=== PATIENT | male | born 1960 | race Two or more races ===

== ENCOUNTER 2018-04-01 04:51 | Inpatient (IN) ==
--- NOTE | 2018-03-28 10:28 | PAT Medication Instructions ---
Medication Instructions Date of Service March 28, 2018 Home Medications diphenhydramine HCl [Allergy] 25 mg PO HS NEEDED Take morning of surgery NOTHING TO EAT OR DRINK AFTER MIDNIGHT Take evening before surgery diphenhydramine HCl [Allergy] 25 mg PO HS NEEDED Other Notes If you have any questions please call us at [phone] or [phone] or [phone] or [phone]
--- NOTE | 2018-03-28 11:39 | Anesthesiology Consultation ---
Date of Service March 28, 2018 Assessment & Plan (1) Encounter for pre-operative examination: Chart Review Chart Review: Patient seen in Pre Admission Testing Consults Requested none Teaching & Discussion Pre-Anesthesia Teaching/Discussion Notes: Instructed NPO after midnight before surgery, except medications with 15 cc of water. Medication instructions provided according to the PAT guidelines. History Surgery Operation Date: 04/01/18 13:10 Proposed Procedures p Right Anterior Total Hip Replacement - Jhon Keyes DO Height/Weight Height: 6 ft 3 in Weight: 154.7 kg Allergies Allergy/AdvReac Type Severity Reaction Status Date / Time No Known Allergies Allergy Verified 03/25/18 13:02 Medications Home Medications Medication Instructions Recorded Confirmed Last Taken diphenhydramine HCl [Allergy] 25 mg PO HS PRN 03/25/18 03/25/18 Unknown Past Medical History Medical History Osteoarthritis Past Surgical History Surgical History History of bladder surgery repair congenital defect History of surgery REPAIR OF ANAL FISSURE X 2 Past Anesthesia History No Hx of Anesthesia Complications and No Family Hx of Anesthesia Complications History of PONV No Motion Sickness Screening History of Motion Sickness: No Social History Smoking Status: Former smoker Do You Dip or Chew Tobacco: Yes (Chews 1 can per day. ADVISED) Smoking End Date: . Smoked x 5 years. Smoked 1 pack per week. Hx Alcohol Use: Yes Alcohol type: beer, wine and hard liquor alcohol intake frequency: other Alcohol Intake Frequency Comment: ONCE PER MONTH Hx Substance Use: No substance use type: does not use Exercise / Class Metabolic Activity II 4-5 Yardwork/Stairs/Walk up hill (Able to climb [employer]. 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 Denies CP or SOB. ) Review of Systems Patient denies chest pain, shortness of breath, dyspnea on exertion, reflux, cough, wheezing, palpitations. +joint pain (hip) Physical Exam Vital Signs BP: 146/92 P: 83 R: 18 T: 98.3 SPO2: 94% on RA Constitutional + morbidly obese ENMT Thyromental Distance: > or= 3.5 Finger Breadths (3.5) Mallampati Class: II Neck normal visual inspection, trachea midline and + facial hair (advised); neck extension not limited Respiratory normal respiratory effort Auscultation: lungs clear to auscultation bilaterally Cardiovascular Rate/Rhythm: regular rate and regular rhythm Heart Sounds: no murmur Vessels: no carotid bruit Neurologic moves all extremities Psychiatric Orientation: alert and oriented x 3 Testing Electrocardiogram Date: 03/28/18 Findings: + NSR @ (72) Chest X-Ray Date: 03/28/18 Findings: + NAD Laboratory Results 03/28/18 12:06 03/28/18 12:06 Blood Type A Positive 03/28/18 12:06 Antibody Screen NEGATIVE 03/28/18 12:06 PT 10.5 Seconds (9.0-12.0) 03/28/18 12:06 INR 1.0 (0.9-1.1) 03/28/18 12:06 APTT 30.1 Seconds (21.0-31.0) 03/28/18 12:06
--- NOTE | 2018-03-28 12:33 | XRay Report ---
XR chest Pre-admission PA/Lat HISTORY: Preop. COMPARISON: None. FINDINGS: The lungs are clear. Cardiac silhouette is normal in size. No pleural effusions. No pneumot horax. IMPRESSION: No acute process. Electronically signed by: Jeremiah Parsons M.D. 03/28/2018 12:31 PM
[2018-03-28 13:23] LABS: Basophils # (auto) 0.03 K/uL (0-0.2); Basophils % (auto) 0.3 %; Eosinophils # (auto) 0.16 K/uL (0-0.5); Eosinophils % (auto) 1.5 %; Hematocrit (blood only) 46.7 % (42-52); Hemoglobin 15.7 g/dL (14.0-18.0); Immature Granulocytes # (auto) 0.03 K/uL (0.00-0.02); Immature Granulocytes % (auto) 0.3 %; Lymphocytes # (auto) 2.16 K/uL (1.2-3.4); Lymphocytes % (auto) 20.3 %; Mean Corpuscular Hgb Conc 33.6 g/dL (32-36); Mean Corpuscular Volume 83.7 fL (80-100); Mean Platelet Volume 11.5 fL (7.4-10.4); Monocytes # (auto) 0.62 K/uL (0.11-0.59); Monocytes % (auto) 5.8 %; Neutrophils # (auto) 7.66 K/uL (1.4-6.5); Neutrophils % (auto) 71.8 %; Platelet Count 263 K/uL (130-400); RDW Coefficient of Variation 14.5 % (11.5-14.5); RDW Standard Deviation 44.1 fL (36.4-46.3); Red Blood Count 5.58 M/uL (4.7-6.1); White Blood Count 10.66 K/uL (4.8-10.8)
[2018-03-28 13:45] LABS: Partial Thromboplastin Ratio 1.2; Partial Thromboplastin Time 30.1 Seconds (21.0-31.0); Prothrombin Time 10.5 Seconds (9.0-12.0)
[2018-03-28 13:54] LABS: BUN Creatinine Ratio 10.7 (10-20); Calcium 8.8 mg/dl (8.5-10.1); Est GFR (African American) 95.9; Est GFR (Non-African American) 82.8
--- NOTE | 2018-03-30 07:41 | History & Physical Report ---
Date of Service March 30, 2018 Assessment & Plan (1) Osteoarthritis of right hip: We will proceed with a right anterior total hip arthroplasty. Postoperatively he will be placed on aspirin for DVT prophylaxis. He will be kept overnight in the hospital for postop medical management. He plans to use energy physical therapy upon discharge. Present on Admission?: Yes History of Present Illness Chief Complaint: Primary osteoarthritis of the right hip Primary Care Provider: Darnell aMc is a pleasant 57-year-old male who is been dealing with a several year history of on and off right hip pain. He seen a chiropractor as well as a primary care physician. X-rays and clinical examination have been diagnostic for primary also arthritis of his right hip. Unfortunately his hip pain is gotten much worse recently. There is some days where he can barely move and his has to dress him. He owns a paving company. After failing extensive conservative treatment he is elected proceed with a right total hip arthroplasty. Allergies Allergy/AdvReac Type Severity Reaction Status Date / Time No Known Allergies Allergy Verified 03/25/18 13:02 Home Medications Home Medications Medication Instructions Recorded Confirmed Type diphenhydramine HCl [Allergy] 25 mg PO HS PRN 03/25/18 03/25/18 History Past Med/Surg History Medical History Osteoarthritis Surgical History History of bladder surgery repair congenital defect History of surgery REPAIR OF ANAL FISSURE X 2 Social History Current Living Situation: Spouse Other Information That Helps Us Care for You: No Feels Safe at Home: Yes Safety Concerns: Feels Safe At This Time Smoking Status: Former smoker Do You Dip or Chew Tobacco: Yes (Chews 1 can per day. ADVISED) Smoking End Date: . Smoked x 5 years. Smoked 1 pack per week. Hx Alcohol Use: Yes Alcohol type: beer, wine and hard liquor Alcohol Intake Frequency: other Hx Substance Use: No Beliefs That Will Affect Care: None Preferred Language: Citizen Of [place] Communication Ability: Effective Rn Delivery Required: No Review of Systems All systems reviewed & are unremarkable except as noted in HPI & below Physical Exam 2 Constitutional: WD/WN, vitals as above Eyes: PERRL, conjunctivae normal, anicteric sclerae ENMT: external ear and nose normal, oropharynx normal Neck: trachea midline, no thyromegaly Respiratory: normal respiratory effort Cardiovascular: RRR, no murmur, no edema Gastrointestinal (Abdomen): normal bowel sounds, soft, nontender, no hepatosplenomegaly Musculoskeletal: Physical examination of the right hip reveals decreased range of motion with flexion, internal and external rotation. There is significant groin pain with forced internal rotation of the hip his leg lengths are essentially equal. Psychiatric: A+Ox3, euthymic affect Results & Data Diagnostic Findings Radiographs of the right hip and pelvis demonstrate advanced osteoarthritis with joint space narrowing osteophyte formation and [id number] articulation.
[2018-04-01] MEDS ORDERED: LR 500ML BOLUS, THEN 15ML/HR IV SCH (06:00)
[2018-04-01] MEDS ORDERED: LR 60ML/HR IV SCH (06:00)
[2018-04-01] MEDS ORDERED: CEFAZOLIN 3000MG 65 ML IV SCH (06:00)
[2018-04-01] MEDS ORDERED: FAMOTIDINE 20 MG TAB PO SCH (06:00)
[2018-04-01] MEDS ORDERED: GABAPENTIN 300 MG x 2 PO SCH (06:00)
[2018-04-01] MEDS ORDERED: ACETAMINOPHEN 500 MG TAB PO SCH (06:00)
[2018-04-01] MEDS ORDERED: ROPIVACAINE 0.5% HCL/PF 150 MG, BUPIVACAINE 0.5% MPF 30 ML, EPINEPHrine 30MG/30ML (OR U... INFIL SCH (06:00)
[2018-04-01] MEDS ORDERED: TRANEXAMIC ACID 1,000 MG **IV Pre-op IV SCH (06:00)
[2018-04-01] MEDS ORDERED: fentaNYL citrate 100 MCG/2 ML VIAL ONE (06:29)
[2018-04-01] MEDS ORDERED: MIDAZOLAM HCL 1 MG/ML 2ML VIAL ONE ×4 (06:29→08:18)
[2018-04-01] MEDS ORDERED: TRANEXAMIC ACID 1,000 MG **IV Intra-op IV SCH (06:30)
[2018-04-01] MEDS ORDERED: BUPIVACAINE 0.5 % 5 MG/1 ML PF 10ML VIAL ONE (06:32)
[2018-04-01] MEDS ORDERED: POVIDONE-IODINE OP SOLN 30 ML BTL ONE (06:36)
[2018-04-01] MEDS ORDERED: ORTHO JOINT ANESTHETIC ONE (06:36)
--- NOTE | 2018-04-01 06:42 | History & Physical Bridge Note ---
Date of Service April 01, 2018 History & Physical Bridge Note I have examined the patient, reviewed the History & Physical and in the interval since the performance of the History & Physical I have noted the following changes of clinical significance: no changes noted
[2018-04-01] MEDS ORDERED: ATROPINE SULFATE 0.1 MG/ML 10ML SYR IV PRN (06:50)
[2018-04-01] MEDS ORDERED: ONDANSETRON INJ 2 MG/ML 2 ML VIAL IV PRN ×2 (06:50→09:36)
[2018-04-01] MEDS ORDERED: HYDROmorphone INJ 1 MG/ML SYRINGE IV PRN (06:50)
[2018-04-01] MEDS ORDERED: ePHEDrine sulfate 50 MG/ML AMP IV PRN (06:50)
[2018-04-01] MEDS ORDERED: KETOROLAC 30 MG/ML VIAL IV PRN (06:50)
[2018-04-01] MEDS ORDERED: PHENYLEPHRINE 100MCG/ML 5ML SYR IV PRN (06:50)
[2018-04-01] MEDS ORDERED: PROPOFOL IV EMULSION 10 MG/ML 20 ML VIAL IV ONE (07:22)
[2018-04-01] MEDS ORDERED: KETAMINE HCL INJ 50 MG/ML 10 ML VIAL ONE (07:36)
--- NOTE | 2018-04-01 09:23 | Operative Report ---
Post Operative Report Pre & Post Diagnosis Operation Date: 04/01/18 07:00 Pre-Op Diagnosis: RIGHT HIP DEGENERATIVE JOINT DISEASE Post-Op Diagnosis: RIGHT HIP DEGENERATIVE JOINT DISEASE Procedure Operation Date: 04/01/18 07:00 Actual Procedures p Right Anterior Total Hip Replacement(Right) - Jhon Keyes DO Surgeon Jhon Keyes DO Supervisor Park[employer] Lot Jhon Pal PAC Estimated Blood Loss 250 Findings Consistent with Post-Op Diagnosis Specimens Right femoral head Complications none Disposition Disposition: Recovery Room Indications Bubba is a pleasant 57-year-old male who presented my office with chronic increasing right hip pain. His hip pain has actually become quite debilitating. X-rays and clinical examination have been diagnostic for primary osteoarthritis of the right hip. After failing conservative treatment. He elected to proceed with a right anterior total hip arthroplasty. Description of Procedure Implants used Biomet Taperloc total hip arthroplasty system with a size 20 Taperloc stem, a 56 mm G7 cup with a 25mm screw, an E1 polyethylene liner, a 40 mm ceramic head with a +6 neck. Patient arrived at the hospital for the above procedure. They were seen in the preoperative holding area and the operative extremity was identified and signed. They were given a spinal anesthetic. They were given a preoperative antibiotic and TXA. They were taken back To the operating room and laid on the table in the supine position. The leg was brought out through a Puristst leg positioner. The hip was then prepped and draped in sterile fashion. A timeout was done and the patient in upper extremities properly identified. An anterior approach was used. Dissection was taken down through the fascia and the tensor muscle belly was retracted laterally and the rectus was retracted medially. The circumflex vessels were identified and ligated. The capsule was then incised and tagged for later repair. The femoral neck was then cut and the femoral head was removed. The acetabulum was exposed. Time was spent doing a complete circumferential labral release. Sequential reaming of the acetabulum up to a size 55 reamer was done. Final reamings were done under fluoroscopy to ensure appropriate version. A Biomet 56 mm G7 cup was then impacted into place. A single 25 mm screw was placed. The E1 polyethylene liner was then snapped into place. Surrounding soft tissues were then injected with 100 cc of an orthopedic pain control cocktail. The proximal femur was then exposed. Sequential broaching up to a size 20 broach was done. Off that broach a size 40 head with a +6 neck was trialed. The hip was reduced and fluoroscopic images showed anatomic alignment of the implants in acceptable length. The broach was removed. The final size 20 standard offset Taperloc stem was then impacted into place. A ceramic 40 mm head with a +6 neck was then impacted into place in the hip was reduced. Final fluoroscopic images showed anatomic reduction of the hip. The capsule was then closed with #1 Vicryl suture. A dilute betadyne lavage was then done for 3 minutes. The joint was then irrigated with normal saline solution. The fascia was closed with #1 PDS suture. Skin was closed with 2-0 Vicryl, shelley, and a Benita VAC dressing. The patient was then transferred to a hospital bed and taken to the post anesthesia care unit in stable condition. They tolerated the procedure well. I attest to the content of the Intraoperative Record and any orders documented therein. Any exceptions are noted below.
[2018-04-01] MEDS ORDERED: BISACODYL 10 MG SUPP PR PRN (09:36)
[2018-04-01] MEDS ORDERED: METOCLOPRAMIDE HCL INJ 5 MG/ML 2 ML VIAL IV PRN (09:36)
[2018-04-01] MEDS ORDERED: HYDROmorphone INJ 0.5 MG/0.5 ML SYR IV PRN (09:36)
[2018-04-01] MEDS ORDERED: NALOXONE HCL 0.4 MG/1 ML VIAL/CARP IV PRN (09:36)
[2018-04-01] MEDS ORDERED: MAGNESIUM HYDROXIDE SUSP 30 ML UDC PO PRN (09:36)
--- NOTE | 2018-04-01 10:03 | XRay Report ---
AP PELVIS, CROSSTABLE LATERAL RIGHT HIP History: Right total hip arthroplasty. Degenerative arthritis. Postop. FINDINGS: The patient is status post a right total hip arthroplasty. The hardware is intact. No fract ure or dislocation. Skin shelley are in place. IMPRESSION: Right total hip arthroplasty. No evidence for hardware complication Electronically signed by: Jeremiah Parsons M.D. 04/01/2018 10:02 AM
--- NOTE | 2018-04-01 10:09 | Anesthesiology Progress Note ---
Date of Service April 01, 2018 Anesthesia Post Procedure Vital Signs Vital Signs: Temp Pulse Pulse Resp BP BP Pulse Ox 04/01/18 10:00 58 L 14 142/71 H 97 04/01/18 09:50 60 15 125/70 96 04/01/18 09:41 36.1 C L 70 12 118/71 96 04/01/18 05:48 36.8 C 77 20 149/94 H 96 Pain Intensity Right Hip: Pain Intensity: 3 Notes Mental Status: alert / awake / arousable Patient Amnestic to Procedure: Yes Nausea / Vomiting: adequately controlled Pain: adequately controlled Airway Patency, RR, SpO2: stable & adequate BP & HR: stable & adequate Hydration State: stable & adequate Neuraxial Anesthesia: was administered and sensory block is resolving Anesthetic Complications: no major complications apparent
[2018-04-01] MEDS: SODIUM CHLORIDE 0.9% 1000ML 1,000 ML IV SCH ×2 (10:41→18:55)
[2018-04-01] MEDS: KETOROLAC 30 MG/ML VIAL IV SCH ×2 (11:42→18:54)
--- NOTE | 2018-04-01 12:53 | Fluoroscopy Report ---
FL hip RT 1V CLINICAL HISTORY: RIGHT ANTERIOR MELI COMPARISON STUDY: None. FLUOROSCOPY TIME: 1 minute and 17 seconds. FINDINGS: 3 fluoroscopic spot images of the right hip demonstrated right total hip arthroplasty. The hardware is intact. No fracture or dislocation. IMPRESSION: Fluoroscopy provided for a right total hip arthroplasty. Electronically signed by: Jeremiah Parsons M.D. 04/01/2018 12:51 PM
[2018-04-01] MEDS: ACETAMINOPHEN 500 MG TAB PO SCH ×2 (13:30→22:09)
[2018-04-01] MEDS: CEFAZOLIN 2000MG 2,000 MG/15 ML SYR IV SCH (15:45)
[2018-04-01] MEDS: SENNA 8.6 MG TAB PO SCH (20:03)
[2018-04-01] MEDS: ASPIRIN 81 MG ECTAB PO SCH (20:03)
[2018-04-01] MEDS: DOCUSATE SODIUM 100 MG CAP PO SCH (20:05)
[2018-04-02] MEDS: KETOROLAC 30 MG/ML VIAL IV SCH ×5 (00:51→23:56)
[2018-04-02] MEDS: CEFAZOLIN 2000MG 2,000 MG/15 ML SYR IV SCH (00:52)
[2018-04-02] MEDS: ACETAMINOPHEN 500 MG TAB PO SCH ×3 (05:48→21:22)
[2018-04-02 05:58] LABS: Basophils # (auto) 0.02 K/uL (0-0.2); Basophils % (auto) 0.1 %; Eosinophils # (auto) 0.15 K/uL (0-0.5); Hematocrit (blood only) 36.7 % (42-52); Immature Granulocytes # (auto) 0.06 K/uL (0.00-0.02); Immature Granulocytes % (auto) 0.4 %; Lymphocytes # (auto) 2.18 K/uL (1.2-3.4); Mean Corpuscular Hgb Conc 32.7 g/dL (32-36); Mean Corpuscular Volume 83.8 fL (80-100); Mean Platelet Volume 11.3 fL (7.4-10.4); Monocytes # (auto) 1.31 K/uL (0.11-0.59); Neutrophils # (auto) 10.79 K/uL (1.4-6.5); Neutrophils % (auto) 74.5 %; Platelet Count 205 K/uL (130-400); RDW Coefficient of Variation 14.5 % (11.5-14.5); RDW Standard Deviation 44.8 fL (36.4-46.3); Red Blood Count 4.38 M/uL (4.7-6.1); White Blood Count 14.51 K/uL (4.8-10.8)
[2018-04-02 06:32] LABS: BUN Creatinine Ratio 14.3 (10-20); Calcium 7.6 mg/dl (8.5-10.1); Creatinine Clr Calc Pharmacy 119.9 ml/min; Est GFR (African American) 88.5; Est GFR (Non-African American) 76.3; Potassium 3.7 mmol/L (3.5-5.1)
[2018-04-02] MEDS: ASPIRIN 81 MG ECTAB PO SCH ×2 (07:18→21:22)
[2018-04-02] MEDS: OXYCODONE HCL IR 5 MG TAB (IMMEDIATE RELEASE) PO PRN ×2 (07:18→18:12)
[2018-04-02] MEDS: MULTIVITAMIN TAB PO SCH (07:18)
[2018-04-02] MEDS: DOCUSATE SODIUM 100 MG CAP PO SCH ×2 (07:19→21:21)
--- NOTE | 2018-04-02 08:37 | Orthopedic Progress Note ---
Date of Service April 02, 2018 Assessment & Plan (1) Osteoarthritis of right hip: Overall he is doing very well. Is not having too much pain in the right hip. He will be up and ambulating today more with physical therapy. He is a little unsure if he will be ready to go home today. We will see how he does this afternoon. If he is doing well and his pain is controlled he can be discharged home this afternoon otherwise he can go home tomorrow morning. Present on Admission?: Yes Subjective Bubba was seen and examined at bedside this morning. Overall is doing fairly well. He was up and ambulating around the nurses station last night. He has some soreness in the hip. He has no other complaints. Physical Exam 2 Vital Signs (Past 24 Hours): Last Vital Signs Temp 36.5 C 04/02/18 07:39 Pulse 63 04/02/18 07:39 Resp 20 04/02/18 07:39 BP 144/76 H 04/02/18 07:39 Pulse Ox 97 04/02/18 07:39 Musculoskeletal: On physical examination of the right hip, the Benita VAC dressing is to suction. His leg lengths are equal. He has active dorsiflexion and plantarflexion of the right ankle. Sensation is intact throughout. Results & Data Laboratory Results H & H 03/28/18 04/02/18 Range/Units 12:06 05:28 Hgb 15.7 12.0 L (14.0-18.0) g/dL Hct 46.7 36.7 L (42-52) % Coagulation 03/28/18 Range/Units 12:06 INR 1.0 (0.9-1.1) Diagnostic Findings Postoperative x-rays of the right hip show the prosthesis to be in anatomic alignment without any evidence of fracture, dislocation, or loosening.
[2018-04-02] MEDS: SODIUM CHLORIDE 0.9% 1000ML 1,000 ML IV SCH (14:44)
[2018-04-02] MEDS: SENNA 8.6 MG TAB PO SCH (21:22)
[2018-04-03] MEDS: KETOROLAC 30 MG/ML VIAL IV SCH (06:06)
[2018-04-03] MEDS: ACETAMINOPHEN 500 MG TAB PO SCH (06:07)
[2018-04-03] MEDS: OXYCODONE HCL IR 5 MG TAB (IMMEDIATE RELEASE) PO PRN (07:09)
[2018-04-03] MEDS: MULTIVITAMIN TAB PO SCH (07:09)
[2018-04-03] MEDS: DOCUSATE SODIUM 100 MG CAP PO SCH (07:09)
[2018-04-03] MEDS: ASPIRIN 81 MG ECTAB PO SCH (07:09)
--- NOTE | 2018-04-03 07:13 | Orthopedic Progress Note ---
Date of Service April 03, 2018 Assessment & Plan (1) Osteoarthritis of right hip: Overall he is doing very well. He is ambulating well with physical therapy. I wrote him a prescription for a bariatric tall walker. He is on oxycodone for pain control and aspirin for DVT prophylaxis. He can be discharged home today. He will follow-up with orthopedics in 2 weeks. Present on Admission?: Yes Subjective Bubba was seen and examined at bedside this morning. Overall is doing very well. He was able to participate well with physical therapy. His pain is controlled and he has no complaints. Physical Exam 2 Vital Signs (Past 24 Hours): Last Vital Signs Temp 37.0 C 04/02/18 23:03 Pulse 72 04/02/18 23:03 Resp 18 04/02/18 23:03 BP 144/83 H 04/02/18 23:03 Pulse Ox 96 04/02/18 23:03 Musculoskeletal: On physical examination of the right hip, the Benita VAC dressing is to suction. His leg lengths are equal. He is active dorsiflexion and plantarflexion of his right ankle. Sensation is intact.
--- NOTE | 2018-04-03 07:14 | Discharge Summary ---
Date of Service April 03, 2018 Admission HPI Per Admitting Provider Bubba is a pleasant 57-year-old male who is been dealing with a several year history of on and off right hip pain. He seen a chiropractor as well as a primary care physician. X-rays and clinical examination have been diagnostic for primary also arthritis of his right hip. Unfortunately his hip pain is gotten much worse recently. There is some days where he can barely move and his has to dress him. He owns a paving company. After failing extensive conservative treatment he is elected proceed with a right total hip arthroplasty. Specialty Data Orthopedic H & H 03/28/18 04/02/18 Range/Units 12:06 05:28 Hgb 15.7 12.0 L (14.0-18.0) g/dL Hct 46.7 36.7 L (42-52) % Coagulation 03/28/18 Range/Units 12:06 INR 1.0 (0.9-1.1) Discharge Data Consultations 04/02/18 08:00 Consult Case Management - Discharge Planning Routine Procedures Performed Operation Date: 04/01/18 07:00 Actual Procedures p Right Anterior Total Hip Replacement(Right) - Jhon Keyes DO Hospital Course (1) Osteoarthritis of right hip: On April 01, 2018 Bubba arrived at [facility] and underwent a right anterior total hip arthroplasty without complication. He had a spinal anesthetic. Postoperatively he was started on aspirin for DVT prophylaxis and discharged to general orthopedic floors. His hospital course was uneventful. On postop day #1 his H&H was stable and his pain was well controlled. He was able to ambulate well with physical therapy. On postop day #2 he continued to do well. His pain was well controlled. He was discharged home with physical therapy. He will follow-up with orthopedics in 2 weeks. Discharge Instructions Home Medications Medication Instructions Recorded Confirmed diphenhydramine HCl [Allergy] 25 mg PO HS PRN 03/25/18 04/01/18 Previous Rx's Medication Instructions Recorded aspirin [Ecotrin Low Strength] 81 mg PO BID #84 tab 04/02/18 oxycodone 5 - 10 mg PO Q4H PRN #40 tab 04/02/18
== END 2018-04-03 10:30 | disposition home health service (06) | DRG 470 ==
LOC: ASU 04:51 → 3E 09:25

== ENCOUNTER 2018-05-23 09:27 | Observation (INO) ==
[2018-05-23] MEDS ORDERED: ONDANSETRON INJ 2 MG/ML 2 ML VIAL IV STA (09:46)
[2018-05-23] MEDS ORDERED: SODIUM CHLORIDE 0.9% 1000ML 1,000 ML IV ONE (09:46)
[2018-05-23] MEDS ORDERED: fentaNYL citrate 100 MCG/2 ML VIAL IV STA (09:46)
[2018-05-23 10:14] LABS: Basophils # (auto) 0.03 K/uL (0-0.2); Basophils % (auto) 0.4 %; Eosinophils # (auto) 0.12 K/uL (0-0.5); Eosinophils % (auto) 1.4 %; Hematocrit (blood only) 41.5 % (42-52); Hemoglobin 13.7 g/dL (14.0-18.0); Immature Granulocytes # (auto) 0.01 K/uL (0.00-0.02); Immature Granulocytes % (auto) 0.1 %; Lymphocytes # (auto) 1.42 K/uL (1.2-3.4); Lymphocytes % (auto) 16.8 %; Mean Corpuscular Volume 83.3 fL (80-100); Mean Platelet Volume 11.5 fL (7.4-10.4); Monocytes # (auto) 0.56 K/uL (0.11-0.59); Monocytes % (auto) 6.6 %; Neutrophils # (auto) 6.32 K/uL (1.4-6.5); Neutrophils % (auto) 74.7 %; Platelet Count 275 K/uL (130-400); RDW Coefficient of Variation 15.1 % (11.5-14.5); RDW Standard Deviation 46.1 fL (36.4-46.3); Red Blood Count 4.98 M/uL (4.7-6.1); White Blood Count 8.46 K/uL (4.8-10.8)
[2018-05-23 10:34] LABS: Est GFR (African American) 112.4; Potassium 3.9 mmol/L (3.5-5.1)
[2018-05-23 10:35] LABS: Albumin Level 3.4 gm/dl (3.4-5.0); BUN Creatinine Ratio 15.5 (10-20); Bilirubin,Total 0.4 mg/dl (0.2-1); Calcium 8.5 mg/dl (8.5-10.1); Creatinine Clr Calc Pharmacy 150.1 ml/min; Est GFR (Non-African American) 96.9; Total Protein 7.1 gm/dl (6.4-8.2)
--- NOTE | 2018-05-23 11:45 | Ultrasound Report ---
ABDOMINAL ULTRASOUND, RIGHT UPPER QUADRANT HISTORY: RUQ Pain radiating to flank. COMPARISON: None. FINDINGS: Pancreas: Obscured by overlying bowel gas. Liver: The liver is echogenic consistent with fatty change. Gallbladder: Multiple stones identified. Suspect trace pericholecystic fluid. Borderline gallbladder wall thickening. Dominant stone measures 2.6 cm. CBD: 6 mm. Right kidney: No hydronephrosis. IMPRESSION: Cholelithiasis with borderline gallbladder wall thickening and possible trace pericholecystic fluid. There is also a positive sonographic Dwason's sign. Therefore, this is suspicious for acute cholecyst itis. Electronically signed by: Jeremiah Parsons M.D. 05/23/2018 11:44 AM
[2018-05-23] MEDS ORDERED: HYDROmorphone INJ 1 MG/ML SYRINGE IV STA (12:02)
--- NOTE | 2018-05-23 12:47 | History & Physical Report ---
Date of Service May 23, 2018 Assessment & Plan (1) Acute cholecystitis: Large gallstone with early inflammatory changes on U/S, will plan for laparoscopic cholecystectomy this afternoon. Had EKG and CXR in Mar 2018 prior to MELI. as above. hx c/w acute cholecystitis. discussed options/risks ( bleeding /infection/dvt/pe/mi/cva/bile leaks etc...) questions answered will proceed with lap mahnaz this afternoon. History of Present Illness Primary Care Provider: Darnell Montez 57 y/o male with RUQ pain, N/V that began last evening several hours after eating meatloaf. No previous biliary symptoms although multiple family members have had cholecystectomy. Pain started as an 8 and continues at an 8 after being medicated. Allergies Allergy/AdvReac Type Severity Reaction Status Date / Time No Known Allergies Allergy Verified 04/01/18 05:41 Home Medications Home Medications Medication Instructions Recorded Confirmed Type diphenhydramine HCl [Allergy] 25 mg PO HS PRN 03/25/18 05/23/18 History aspirin [Ecotrin Low Strength] 81 mg PO HS 05/23/18 05/23/18 History Past Med/Surg History Medical History Osteoarthritis Surgical History History of bladder surgery repair congenital defect History of surgery REPAIR OF ANAL FISSURE X 2 Social History Preferred Language: [place] Beliefs That Will Affect Care: None Current Living Situation: Spouse Feels Safe at Home: Yes Smoking Status: Never smoker Hx Alcohol Use: Yes Hx Substance Use: No Review of Systems Constitutional: + weight loss; no fever and no chills Cardiovascular: no chest pain and no chest pain with activity Gastrointestinal: + abdominal pain, + nausea and + vomiting; no bloating Physical Exam Vital Signs (Past 24 Hours): Last Vital Signs Temp 36.4 C L 05/23/18 09:32 Pulse 75 05/23/18 11:31 Resp 18 05/23/18 11:31 BP 165/90 H 05/23/18 11:31 Pulse Ox 99 05/23/18 11:31 Constitutional: WD/WN, vitals as above Respiratory: normal respiratory effort, lungs clear to auscultation Cardiovascular: RRR, no murmur, no edema Gastrointestinal (Abdomen): Percussion/Palpation: + abdomen tender (RUQ), + guarding and abdomen soft Skin: no rashes, warm and dry Results & Data Diagnostic Findings ABDOMINAL ULTRASOUND, RIGHT UPPER QUADRANT HISTORY: RUQ Pain radiating to flank. COMPARISON: None. FINDINGS: Pancreas: Obscured by overlying bowel gas. Liver: The liver is echogenic consistent with fatty change. Gallbladder: Multiple stones identified. Suspect trace pericholecystic fluid. Borderline gallbladder wall thickening. Dominant stone measures 2.6 cm. CBD: 6 mm. Right kidney: No hydronephrosis. IMPRESSION: Cholelithiasis with borderline gallbladder wall thickening and possible trace pericholecystic fluid. There is also a positive sonographic Dawson's sign. Therefore, this is suspicious for acute cholecystitis.
--- NOTE | 2018-05-23 13:23 | XRay Report ---
XR chest 1V portable CLINICAL HISTORY: pre-op preoperative evaluation COMPARISON STUDY: 03/28/2018 FINDINGS: The bones soft tissues and hemidiaphragms are normal. The cardiomediastinal silhouette is n ormal. The lungs are clear. The pulmonary vasculature is normal. IMPRESSION: Negative chest. The above report was generated using voice recognition software. It may contain grammatical, syntax or spelling errors. Electronically signed by: Edward Rosas M.D. 05/23/2018 1:22 PM
[2018-05-23] MEDS ORDERED: LIDOCAINE HCL 2% 2 ML VIAL/AMP(20MG/ML) INFIL ONE (13:25)
[2018-05-23] MEDS ORDERED: ONDANSETRON INJ 2 MG/ML 2 ML VIAL ONE (13:25)
[2018-05-23] MEDS ORDERED: SUCCINYLCHOLINE CHLORIDE 20 MG/ML 10 ML VIAL ONE (13:25)
[2018-05-23] MEDS ORDERED: PROPOFOL IV EMULSION 10 MG/ML 20 ML VIAL IV ONE (13:25)
[2018-05-23] MEDS ORDERED: DEXAMETHASONE SOD INJ 4 MG/ML VIAL ONE (13:25)
[2018-05-23] MEDS ORDERED: MIDAZOLAM HCL 1 MG/ML 2ML VIAL ONE (13:25)
[2018-05-23] MEDS ORDERED: fentaNYL citrate 100 MCG/2 ML VIAL ONE ×2 (13:25→15:06)
[2018-05-23] MEDS ORDERED: BUPIVACAINE/EPINEPHRINE 0.5% MPF 1:200,000 30 ML VIAL ONE (13:29)
[2018-05-23] MEDS ORDERED: CEFAZOLIN 3000MG 72.5 ML IV ONE (13:44)
[2018-05-23] MEDS ORDERED: CEFAZOLIN 3000MG/72.5 ML BAG IV ONE (13:45)
--- NOTE | 2018-05-23 14:27 | Anesthesiology Consultation ---
Date of Service May 23, 2018 Assessment & Plan (1) Encounter for pre-operative examination: Chart Review Chart Review: Acceptable Risk for Surgery NPO Date Last Intake of Fluids: 05/22/18 Time Last Intake of Fluids: 18:00 Date Last Intake of Solids: 05/22/18 Time Last Intake of Solids: 14:00 History Surgery Operation Date: 05/23/18 13:40 Proposed Procedures p Laparoscopic Cholecystectomy - Remi Marie, DO Height/Weight Height: 6 ft 3 in Weight: 149.8 kg Allergies Allergy/AdvReac Type Severity Reaction Status Date / Time No Known Allergies Allergy Verified 04/01/18 05:41 Medications Home Medications Medication Instructions Recorded Confirmed Last Taken diphenhydramine HCl [Allergy] 25 mg PO HS PRN 03/25/18 05/23/18 03/31/18 20:30 aspirin [Ecotrin Low Strength] 81 mg PO HS 05/23/18 05/23/18 Unknown Past Medical History Medical History Osteoarthritis Past Surgical History Surgical History H/O total hip arthroplasty Right side, 03/2018 History of bladder surgery repair congenital defect History of surgery REPAIR OF ANAL FISSURE X 2 Social History Smoking Status: Never smoker Hx Alcohol Use: Yes Alcohol type: beer, wine and hard liquor alcohol intake frequency: other Hx Substance Use: No substance use type: does not use Physical Exam Vital Signs Last Vital Signs Temp 36.7 C 05/23/18 13:39 Pulse 57 L 05/23/18 13:39 Resp 20 05/23/18 13:39 BP 117/97 05/23/18 13:39 Pulse Ox 100 05/23/18 13:39 Testing Electrocardiogram Date: 05/23/18 Findings: + SB @ (52) Laboratory Results 05/23/18 09:57 05/23/18 09:57
[2018-05-23] MEDS ORDERED: ePHEDrine sulfate 50 MG/ML AMP IV PRN (14:33)
[2018-05-23] MEDS ORDERED: ATROPINE SULFATE 0.1 MG/ML 10ML SYR IV PRN (14:33)
[2018-05-23] MEDS ORDERED: ONDANSETRON INJ 2 MG/ML 2 ML VIAL IV PRN ×2 (14:33→17:06)
[2018-05-23] MEDS ORDERED: GLYCOPYRROLATE 0.2 MG/ML VIAL ONE (15:05)
[2018-05-23] MEDS ORDERED: NEOSTIGMINE METHYLSULFATE 5 MG/5 ML SYR ONE (15:05)
[2018-05-23] MEDS ORDERED: ROCURONIUM BROMIDE 10 MG/ML 5 ML VIAL ONE (15:05)
--- NOTE | 2018-05-23 15:27 | Emergency Department Note ---
Entered by Leyla Bella acting as a scribe for ED Provider Note Name: Bubba Cobian Age: 57 Arrives Via: Private vehicle Informant: Patient CC: Right upper quadrant/flank pain HPI: A 57 year old male arrives for evaluation of constant right upper quadrant/flank pain beginning 13 hours ago. He rates this pain as an 8/10 in severity, and notes it radiates to his back. The patient denies chest pain or l ower abdominal pain. He notes nausea and vomiting. The patient denies leg pain or swelling. He reports he took oxycodone that he had from a recent hip surgery, which did not seem to improve his symptoms. The patient took TUMS this morning. ROS: See above HPI for pertinent positives & negatives. A total of 10 systems reviewed and were otherwise negative. Past Medical History: No chronic diseases present. Past Surgical History: Right total hip replacement (03/2018). Family History: Gallbladder disease. Social History: Employed. Home Medications: Aspirin, diphenhydramine, oxycodone. Allergies: No known allergies. Physical: Vitals: Blood pressure: 181/129. Heart rate: 71. Respiratory rate: 22. Temperature: 97.5 F. O2 saturation: 97, delivery: room air. Exam: GENERAL: Patient is uncomfortable appearing and in moderate distress. EYES: No scleral icterus, unremarkable pupils. ENT: Mucous membranes moist, no nasal congestion. NECK: No masses appreciated, no meningismus, trachea is midline. RESPIRATORY: No dyspnea. Clear to auscultation and equal bilaterally. No wheeze, no rhonchi. CARDIOVASCULAR: Regular rate and rhythm. No murmurs, rubs, gallops appreciated. GASTROINTESTINAL: Moderate right upper quadrant pain, worse with deep inspira tion. Abdomen soft, no peritonitis. Bowel sounds positive. No masses appreciated. BACK: No midline tenderness, no CVA tenderness EXTREMITIES: Normal motion all extremities, no cyanosis, no edema. NEUROLOGIC: Alert and oriented, no acute motor or sensory deficits, no focal weakness, cranial nerves grossly intact. SKIN: No rash, no jaundice, no diaphoresis. ED Course: Prior Medical Record, Triage/Nursing Notes, Medications, Allergies reviewed by Me Vital Signs: reviewed and remarkable for HTN Labs: Reviewed and remarkable for mild [place] elevation Interventions: saline lock, nss bolus 1 L IV, Fentanyl 100mcg IV, Dilaudid 1 mg IV Imaging: X ray results are stated below per my interpretation: Chest: 1 view: No infiltrate, no effusion, normal cardiac border. US Gallbladder per rads with concern cholecystitis early EKG: see chart Consults: 1201: I reviewed the patient's case with Stewart Singh, [facility] general surgery, working with Dr. Marie. They will evaluate the patient. 1242: Discussed with Stewart Singh, [facility] general surgery. The patient will be taken to the OR. Reassessments/Times: 1212: The patient is having increasing pain. He is agreeable to assessment by general surgery. 1245: Upon reevaluation, the patient is resting and more comfortable following dilaudid. I discussed results. They verbalized agreement with pre-operative EKG and chest X-ray. Blood pressure: Elevated - [place] to be Situational Disposition: Evaluation by Surgeon Prescriptions: none. Differentials: Etiologies such as appendicitis, diverticulitis, PUD, biliary pathology, UTI, pancreatitis, obstruction, mesenteric ischemia, aortic pathology, infections, inflammatory bowel disease, renal colic, as well as others were entertained. Medical Decision Makin yr old pleasant male with RUQ pain and TTP on exam. Labs unremarkable. US concerning for Cholecystitis. With exam, history and borderline US I felt surg eval indicated. Gen Surg down to see and will take to OR for further evaluation. Patient stable throughout and without evidence sepsis. Pre-op ekg/cxr done in ED. Impression: Acute Cholecystitis Alphonso Pierre MD The scribe's documentation has been prepared under my direction and personally reviewed by me in its entirety. I confirm that the note above accurately reflects all work, treatment, procedures, and medical decision making performed by me. Impression & Plan Acute cholecystitis Past Med/Surg History Medical History Osteoarthritis Surgical History H/O total hip arthroplasty Right side, 03/2018 History of bladder surgery repair congenital defect History of surgery REPAIR OF ANAL FISSURE X 2 Social History Preferred Language: Urdu Beliefs That Will Affect Care: None Current Living Situation: Spouse Feels Safe at Home: Yes Smoking Status: Never smoker Hx Alcohol Use: Yes Hx Substance Use: No Results & Data Vital Signs Vital Signs - 24 hr 05/23/18 09:32 05/23/18 11:31 05/23/18 13:00 Temperature 36.4 C L Temperature Source Oral Sepsis Recent Fever Within 48 Hours No Sepsis New/Unexplained Change in Mental Status No Sepsis Action Taken by Nursing No Action Required Pulse Rate 71 Pulse Rate [Finger] 75 66 Respiratory Rate 22 18 18 Respiratory Effort / Characteristics Respiratory Depth Respiratory Pattern Blood Pressure 181/129 H Blood Pressure [Right Arm] 165/90 H 179/96 H Blood Pressure Mean 146 Blood Pressure Mean [Right Arm] 115 123 Blood Pressure Position [Right Arm] Pulse Oximetry 97 99 96 Oxygen Delivery Method Room Air Room Air Room Air 05/23/18 13:24 05/23/18 13:39 Temperature 36.7 C Temperature Source Sepsis Recent Fever Within 48 Hours Sepsis New/Unexplained Change in Mental Status Sepsis Action Taken by Nursing Pulse Rate 87 Pulse Rate [Finger] 57 L Respiratory Rate 16 20 Respiratory Effort / Characteristics Non-Labored Spontaneous Respiratory Depth Normal Respiratory Pattern Regular Blood Pressure 177/91 H Blood Pressure [Right Arm] 117/97 Blood Pressure Mean Blood Pressure Mean [Right Arm] 103 Blood Pressure Position [Right Arm] Sitting Pulse Oximetry 96 100 Oxygen Delivery Method Room Air Room Air Laboratory Data Attestation: I reviewed the patient's lab results. Result diagrams: 05/23/18 09:57 05/23/18 09:57 Lab Results 05/23/18 05/23/18 Range/Units 09:57 09:57 WBC 8.46 (4.8-10.8) K/uL RBC 4.98 (4.7-6.1) M/uL Hgb 13.7 L (14.0-18.0) g/dL Hct 41.5 L (42-52) % MCV 83.3 (80-100) fL MCH 27.5 (25-34) pg MCHC 33.0 (32-36) g/dL RDW Std Deviation 46.1 (36.4-46.3) fL RDW Coeff of Drew 15.1 H (11.5-14.5) % Plt Count 275 (130-400) K/uL MPV 11.5 H (7.4-10.4) fL Immature Gran % (Auto) 0.1 % Neut % (Auto) 74.7 % Lymph % (Auto) 16.8 % [place] % (Auto) 6.6 % Eos % (Auto) 1.4 % Baso % (Auto) 0.4 % Immature Gran # (Auto) 0.01 (0.00-0.02) K/uL Neut # (Auto) 6.32 (1.4-6.5) K/uL Lymph # (Auto) 1.42 (1.2-3.4) K/uL [place] # (Auto) 0.56 (0.11-0.59) K/uL Eos # (Auto) 0.12 (0-0.5) K/uL Baso # (Auto) 0.03 (0-0.2) K/uL Sodium 138 (136-145) mmol/L Potassium 3.9 (3.5-5.1) mmol/L Chloride 108 H (98-107) mmol/L Carbon Dioxide 27 (21-32) mmol/L Anion Gap 3.0 (3-11) BUN 13 (7-18) mg/dl Creatinine 0.86 (0.6-1.4) mg/dl Est Cr Clr Drug Dosing 150.1 ml/min Est GFR ( Amer) 112.4 Est GFR (Non-Af Amer) 96.9 BUN/Creatinine Ratio 15.5 (10-20) Glucose 107 H (70-99) mg/dl Calcium 8.5 (8.5-10.1) mg/dl Total Bilirubin 0.4 (0.2-1) mg/dl Direct Bilirubin (0-0.2) mg/dl AST 15 (15-37) U/L ALT 22 (12-78) U/L Alkaline Phosphatase 118 H (45-117) U/L Total Protein 7.1 (6.4-8.2) gm/dl Albumin 3.4 (3.4-5.0) gm/dl Lipase 143 (73-393) U/L Specimen Hemolysis Administered Medications Discontinued Medications Cefazolin Sodium (Ancef 3000mg) Confirm Administered Dose 3,000 mg IV .STK-MED ONE Stop: 05/23/18 13:46 Last Admin: 05/23/18 14:37 Dose: 3,000 mg Documented by: [id number] Fentanyl Citrate (Fentanyl Citrate) 100 mcg IV NOW STA Stop: 05/23/18 09:47 Last Admin: 05/23/18 10:05 Dose: 100 mcg Documented by: [id number] Hydromorphone HCl (Dilaudid) 1 mg IV NOW STA Stop: 05/23/18 12:03 Last Admin: 05/23/18 12:14 Dose: 1 mg Documented by: [id number] Sodium Chloride (Nss 1000ml) 1,000 mls @ 999 mls/hr IV .Q1H1M ONE Stop: 05/23/18 10:46 Last Infusion: 05/23/18 11:24 Dose: 0 mls/hr Documented by: [id number] Admin: 05/23/18 10:04 Dose: 999 mls/hr Documented by: [id number] Ondansetron HCl (Zofran) 4 mg IV NOW STA Stop: 05/23/18 09:47 Last Admin: 05/23/18 10:05 Dose: 4 mg Documented by: [id number] Imaging Data Radiologist's Impression: Radiology results as stated below per my review and the radiologist's interpretation: ABDOMINAL ULTRASOUND, RIGHT UPPER QUADRANT HISTORY: RUQ Pain radiating to flank. COMPARISON: None. FINDINGS: Pancreas: Obscured by overlying bowel gas. Liver: The liver is echogenic consistent with fatty change. Gallbladder: Multiple stones identified. Suspect trace pericholecystic fluid. Borderline gallbladder wall thickening. Dominant stone measures 2.6 cm. CBD: 6 mm. Right kidney: No hydronephrosis. IMPRESSION: Cholelithiasis with borderline gallbladder wall thickening and possible trace pericholecystic fluid. There is also a positive sonographic Dawson's sign. Therefore, this is suspicious for acute cholecystitis. Electronically signed by: Jeremiah Parsons M.D. 05/23/2018 11:44 AM XR chest 1V portable HISTORY: Shortness of breath. COMPARISON: Chest . FINDINGS: The heart remains borderline enlarged. No pleural effusions. No pneumothorax. No new focal lung consolidations to suggest pneumonia. No evidence for pulmonary edema. IMPRESSION: No significant change compared to the prior study. No acute process. Electronically signed by: Jeremiah Parsons M.D. 05/23/2018 9:06 AM Discharge Plan Visit Data *Final* Discharge Date/Time: 05/23/18 13:40 Chief Complaint: Flank Pain Stated Complaint: PAIN IN RUQ AND BACK TO SHOULDER BLADE ED Provider: Alphonso Pierre Discharge Problem: Acute cholecystitis Patient Disposition: Admitted As Inpatient Discharge Instructions Interventions: ED Discharge Assessment Last Done: 05/23/18 13:24 The scribe's documentation has been prepared under my direction and personally reviewed by me in its entirety. I confirm that the note above accurately reflects all work, treatment, procedures, and medical decision making performed by me.
[2018-05-23] MEDS: fentaNYL citrate 100 MCG/2 ML VIAL IV PRN ×4 (16:01→16:25)
--- NOTE | 2018-05-23 16:04 | Operative Report ---
Post Operative Report Pre & Post Diagnosis Operation Date: 05/23/18 13:40 Pre-Op Diagnosis: Acute Cholecystitis Post-Op Diagnosis: Acute Cholecystitis Procedure Operation Date: 05/23/18 13:40 Actual Procedures p Laparoscopic Cholecystectomy - Remi Marie DO Surgeon Remi Marie DO [employer] Drying Machine Operator tona Singh Estimated Blood Loss 10 Findings Consistent with Post-Op Diagnosis Specimens gallbladder Description of Procedure After informed consent was obtained the patient was taken to the operating room and placed in the supine position. After successful intubation the abdomen was sterilely prepped and draped in usual fashion. A periumbilical incision was made with an 11 blade scalpel and carried down through the soft tissue using el ectrocautery. The anterior rectus fascia was opened using electrocautery and 2 #0 Vicryl stay sutures were placed. The peritoneum was elevated with hemostats and incised under direct vision using Metzenbaum scissors. A finger sweep was performed and a 12 mm Chavira trocar was placed. The abdomen was insufflated to 18 mmHg. The laparoscope was inserted and the abdomen was examined in 360. No gross abnormalities were identified. A subxiphoid 5 mm port and 2 right upper quadrant 5 mm ports were placed under direct vision. The patient was placed in a reverse Trendelenburg position and slightly airplaned to the left. The gallbladder was acutely inflamed. I use a gallbladder needle to drain some thick sludge like fluid. Once we did this I was then able to grasp the gallbladder and elevate it superiorly and laterally. A [place] dissector was used to take down adhesions around the neck of the gallbladder. The cystic duct was identified and skeletonized. It was very thick and bulky and therefore I replaced the subxiphoid port with a 12 mm port and used a JUMA brown cartridge 60 mm stapler to transect the cystic duct at its junction with the neck of the gallbladder. In similar fashion the cystic artery was identified and skeletonized clipped and divided. There was also a posterior branch of the artery that had to be clipped and cut as well. The gallbladder was removed from the gallbladder fossa with electrocautery. It was placed into an Endo Catch bag. There was a small amount of bile spillage during the procedure. Thorough irrigation was performed. At the end of the procedure there was adequate hemostasis and no evidence of any bile leaks. A final look around the abdomen showed no other abnormalities. The gallbladder and trochars were all removed and the abdomen was desufflated. The fascia of the camera port was closed using 0 Vicryl in a [id number] fashion. All the wounds were irrigated and closed using 4-0 Monocryl. Marcaine was injected around them for postoperative analgesia and skin glue used as a dressing. The patient was awaken extubated and transferred to recovery in stable condition. My physician's catering assistant was present throughout the entire case... helped with prepping the patient. With exposure for trocar placement, as well as retracted the gallbladder throughout the case and also assisted with wound closure and dressing placement. I attest to the content of the Intraoperative Record and any orders documented therein. Any exceptions are noted below.
--- NOTE | 2018-05-23 16:38 | Anesthesiology Progress Note ---
Date of Service May 23, 2018 Anesthesia Post Procedure Vital Signs Vital Signs: Temp Pulse Pulse Pulse Resp BP BP 05/23/18 16:30 36.8 C 69 16 161/79 H 05/23/18 16:20 62 23 152/79 H 05/23/18 16:10 64 20 194/92 H 05/23/18 16:03 69 26 H 171/89 H 05/23/18 15:54 36.4 C L 88 21 167/78 H 05/23/18 13:39 36.7 C 57 L 20 05/23/18 13:24 87 16 177/91 H 05/23/18 13:00 66 18 05/23/18 11:31 75 18 05/23/18 09:32 36.4 C L 71 22 181/129 H BP Pulse Ox 05/23/18 16:30 97 05/23/18 16:20 98 05/23/18 16:10 99 05/23/18 16:03 98 05/23/18 15:54 96 05/23/18 13:39 117/97 100 05/23/18 13:24 96 05/23/18 13:00 179/96 H 96 05/23/18 11:31 165/90 H 99 05/23/18 09:32 97 Pain Intensity Right Upper Abdomen: Pain Intensity: 0 Right Hip: Pain Intensity: 3 Notes Mental Status: alert / awake / arousable and participated in evaluation Patient Amnestic to Procedure: Yes Nausea / Vomiting: adequately controlled Pain: adequately controlled Airway Patency, RR, SpO2: stable & adequate BP & HR: stable & adequate Hydration State: stable & adequate Anesthetic Complications: no major complications apparent and Pt Satisfied with anesthetic care
[2018-05-23] MEDS ORDERED: MoRPHine SULFATE 4 MG/ML 1 ML CARP\\VIAL IV PRN (17:06)
[2018-05-23] MEDS ORDERED: HYDROCODONE/ACETAMOPHEN 5/325MG TAB PO PRN ×2 (17:06)
[2018-05-23] MEDS ORDERED: ACETAMINOPHEN 325 MG TAB PO PRN (17:06)
[2018-05-23] MEDS: LACTATED RINGER'S 1,000 ML IV SCH (17:11)
[2018-05-23] MEDS ORDERED: ASPIRIN 81 MG ECTAB PO SCH (21:00)
[2018-05-24] MEDS: LACTATED RINGER'S 1,000 ML IV SCH ×2 (00:56→08:52)
--- NOTE | 2018-05-24 07:37 | Surgery Progress Note ---
Date of Service May 24, 2018 Assessment & Plan (1) Acute cholecystitis: POD 1 lap mahnaz advance diet, ok for d/c as above. feeling much better. regular diet for lunch. plan d/c after lunch if he tolerates it. Subjective feels much better, minimal pain, some drainage from umbilical incision Physical Exam Vital Signs (Past 24 Hours): Last Vital Signs Temp 36.4 C L 05/24/18 07:00 Pulse 75 05/24/18 07:00 Resp 16 05/24/18 07:00 BP 132/87 05/24/18 07:00 Pulse Ox 95 05/24/18 07:00 Gastrointestinal (Abdomen): Inspection/Auscultation: + abdominal surgical incision (dry, bandage dry); abdomen not distended Percussion/Palpation: abdomen soft
--- NOTE | 2018-05-25 01:50 | Discharge Summary ---
PRIMARY DISCHARGE DIAGNOSIS: Acute cholecystitis. PROCEDURE PERFORMED: Laparoscopic cholecystectomy. HOSPITAL COURSE: The patient is a 57-year-old male who presented to Emergency Department with severe right upper quadrant pain that began overnight after eating meatloaf. His ultrasound showed a large gallstone, 2.6 cm, borderline wall thickening and pericholecystic fluid. He was taken to the operating room later that afternoon for laparoscopic cholecystectomy. He did have an acutely inflamed gallbladder. The procedure was well tolerated. He was transferred to the surgical floor for overnight observation. On postoperative day 1, he was tolerating diet and oral analgesics. His right upper quadrant pain had resolved. His incisions were clean and dry. He was stable for discharge. DISCHARGE INSTRUCTIONS: Discharge home. Follow up with Dr. Marie in 2 weeks. DISCHARGE MEDICATIONS: [place] 1-2 tablets every 4 hours as needed. Continue his home aspirin 81 mg daily and Benadryl 25 mg at bedtime.
== END 2018-05-24 13:55 | disposition home or self-care (01) ==
LOC: ED 09:27 → 3W 13:40 → ASU 13:40